=== PATIENT | male | born 1965 | race African-American/Black ===

== ENCOUNTER 2016-10-05 20:59 | Emergency (ER) | payer OTHER ==
[~2016-10-05] VITALS: Ht 182.9 cm; Wt 127.0 kg
[2016-10-05 21:49] VITALS: BP 135/75
[2016-10-05] MEDS ORDERED: KETOROLAC 30MG/ML VIAL IM ONE (22:30)
[2016-10-05] MEDS ORDERED: BACITRACIN ZINC OINT UDPKT TOP ONE (22:30)
[2016-10-05] MEDS ORDERED: LIDOCAINE HCL 1% 20ML VIAL (Pyxis) INJ MC ONE (22:30)
[2016-10-05] MEDS ORDERED: KETOROLAC 30MG/ML VIAL ONE (23:17)
== END 2016-10-05 23:47 | disposition home or self-care (01) ==
LOC: ER 21:16
DX: M25.511 Pain in right shoulder (principal); E11.9 Type 2 diabetes mellitus without complications; E78.00 Pure hypercholesterolemia, unspecified; F17.200 Nicotine dependence, unspecified, uncomplicated
CPT/HCPCS: 73030; 99284; J1885; J3490; Z7610; 20520; A4565